=== PATIENT | female | born 1955 | race African-American/Black ===

== ENCOUNTER 2019-11-12 11:00 | Outpatient (CLI) | payer MEDICARE, MEDICAID ==
[~2019-11-12 11:00] MED LIST: MONT5TAB14 PO; QUET25TA PO
== END 2019-11-12 23:59 | disposition home or self-care (01) ==
LOC: WOU 11:00
PROVIDERS: ATTEND Surgery
DX: R59.0 Localized enlarged lymph nodes (principal); I10 Essential (primary) hypertension
CPT/HCPCS: G0463

== ENCOUNTER 2019-11-18 11:31 | Outpatient (CLI) | payer MEDICARE, MEDICAID ==
[2019-11-18 13:03] LABS: BASOPHILS % (AUTO) 0.6 % (0.0-2.0); EOSINOPHILS % (AUTO) 7.3 % (0.0-6.0); HEMATOCRIT 39 % (33-45); HEMOGLOBIN 12.4 g/dL (11.5-14.8); LYMPHOCYTES # (AUTO) 1.7 /CMM (0.8-4.8); LYMPHOCYTES % (AUTO) 39.6 % (20.0-44.0); MEAN CORPUSCULAR HGB CONC 32 g/dl (31.0-36.0); MEAN CORPUSCULAR VOLUME 75 fL (82-100); MONOCYTES # (AUTO) 0.4 /CMM (0.1-1.30); MONOCYTES % (AUTO) 8.7 % (2.0-12.0); NEUTROPHILS # (AUTO) 1.9 /CMM (1.8-8.9); NEUTROPHILS % (AUTO) 43.8 % (43.0-81.0); PLATELET COUNT (AUTO) 277 /CMM (150-450); RED BLOOD CELL COUNT(AUTO) 5.23 MIL/uL (4.0-5.2); WHITE BLOOD COUNT (AUTO) 4.4 K/uL (4.3-11.0)
[2019-11-18 13:11] LABS: CREATININE 0.9 mg/dL (0.6-1.3); POTASSIUM 3.5 mmol/L (3.5-5.1)
== END 2019-11-18 23:59 | disposition home or self-care (01) ==
LOC: LAB 11:31
PROVIDERS: ATTEND Surgery
DX: Z01.818 Encounter for other preprocedural examination (principal); R59.0 Localized enlarged lymph nodes; I70.0 Atherosclerosis of aorta; M85.88 Other specified disorders of bone density and structure, other site
CPT/HCPCS: 36415; 71046; 80048-TC; 85025-TC; 85610-TC; 85730-TC

== ENCOUNTER 2019-11-24 15:00 | Outpatient (CLI) | payer MEDICARE, MEDICAID | END 2019-11-24 23:59 | disposition home or self-care (01) | LOC: LAB 15:00 | PROVIDERS: ATTEND Surgery | DX: Z01.812 Encounter for preprocedural laboratory examination (principal); Z20.828 Contact with and (suspected) exposure to other viral communicable diseases; R59.0 Localized enlarged lymph nodes | CPT/HCPCS: C9803; U0003 ==

== ENCOUNTER 2019-11-27 05:09 | Inpatient (IN) | payer MEDICARE, OTHER ==
[2019-11-27] VITALS (9 sets, daily range): BP systolic 134–164; BP diastolic 77–95
[~2019-11-27] VITALS: Ht 157.5 cm; Wt 62.1 kg
--- NOTE | 2019-11-27 05:30 | NUR ---
MS RN NOTES PATIENT ARRIVED ON FLOOR AT 0530. PT IS IN BED, AWAKE, ALERT AND ORIENTED X 4. BREATHING EVEN AND UNLABORED ON ROOM AIR. SHOWS NO SIGNS OF ACUTE RESPIRATORY DISTRESS. NO ACUTE PAIN. IV ON R WRIST 22G ITS CLEAN DRY AND INTACT. SHOWS NO SIGNS OF INFILTRATION. NO REDNESS. BELONGINGS CHECKLIST COMPLETED, SKIN ASSESSMENT COMPLETED. ORIENTED TO ROOM AND STAFF. SAFETY PRECAUTIONS IN PLACE. BED IN LOWEST POSITION, LOCKED, AND CALL LIGHT KEPT WITHIN REACH. WILL CONTINUE TO MONITOR.
[2019-11-27] MEDS ORDERED: ANESTHESIA TRAY IN PYXIS 1 EA TRAY MC ONE (06:45)
[2019-11-27] MEDS ORDERED: BUPIVACAINE 0.5 % PF 150 MG/30 ML VIAL ONE (06:45)
[2019-11-27] MEDS ORDERED: BUPIVACAINE MPF 0.5% W/EPI INJ 30 ML VIAL ONE (06:45)
[2019-11-27] MEDS ORDERED: LIDOCAINE 1% INJ 50 ML MDV IJ ONE (06:45)
--- NOTE | 2019-11-27 06:50 | NUR ---
MS RN NOTES PATIENT LEFT FLOOR FOR SURGERY AT 0650. WILL ENDORSE TO ONCOMING NURSE.
[2019-11-27] MEDS ORDERED: FENTANYL PF 100MCG/2ML AMPUL ONE (07:20)
[2019-11-27] MEDS ORDERED: MIDAZOLAM HCL 2 MG/2ML VIAL ONE ×2 (07:20→07:49)
[2019-11-27] MEDS ORDERED: PROPOFOL 40 ML IV ONE (07:20)
--- NOTE | 2019-11-27 07:43 | NUR ---
PATIENT IS IN SURGERY. RECEIVED CHANGE OF SHIFT REPORT FROM TECHN[employer] [facility]KER NURSE.
--- NOTE | 2019-11-27 09:00 | NUR ---
PATIENT WAS BROUGHT TO HER ROOM VIA GURNEY. PATIENT VITALS WITHIN NORMAL LIMITS. AFEBRILE. PATIENT IS AWAKE A/0 X 3. WITH NO SIGNS OF DISTRESS AND NO SOB. IV R WRIST#22G INTACT. NO COMPLAINS OF PAIN AT THIS MOMENT. ORIENTED PATIENT TO HER ROOM. SAFETY MEASURES ARE APPLIED BED IS IN LOW POSITION AND LOCKED. SIDE RAILS UP X 2 FOR SAFETY. CALL LIGHT WITHIN REACH WILL CONTINUE TO MONITOR.
--- NOTE | 2019-11-27 14:40 | NUR ---
DISCHARGED NOTE PATIENT VITAL SIGNS ARE STABLE AND REMAINED AFEBRILE. NO SIGNS OF DISTRESS AND NO SOB IN ROOM AIR. NO COMPLAIN OF PAIN AND NO DISCOMFORT. PATIENT DISCHARGE INSTRUCTIONS WERE EXPLAINED AND SHE VERBALLY STATED UNDERSTANDING AND TEACH BACK. IV RIGHT WRIST WAS REMOVED WITH NO SIGNS OF BLEEDING AND COVERED. BELONGING LIST WAS COMPLETED AND SIGNED BY PATIENT. PATIENT LEFT TO THE LOBBY VIA WHEELCHAIR ACCOMPANIED BY [employer] TO A PRIVATE CAR.
== END 2019-11-27 14:30 | disposition home or self-care (01) | DRG 804 ==
LOC: DS 05:09 → MED 05:11
PROVIDERS: ADMIT Surgery; ATTEND Surgery
PROC: 07B20ZX Excision of Left Neck Lymphatic, Open Approach, Diagnostic (ICD-10-PCS; principal; 2019-11-27)
DX: R59.0 Localized enlarged lymph nodes (principal); F32.9 Major depressive disorder, single episode, unspecified; I10 Essential (primary) hypertension; J44.9 Chronic obstructive pulmonary disease, unspecified
CPT/HCPCS: 87081-TC; G0378; J2250; J2704; J3010; J3490